=== PATIENT | male | born 1935 | race Caucasian/White ===

== ENCOUNTER → 2016-10-17 | Outpatient (CLI) | payer MEDICARE ==
[~2016-10-17] MED LIST: ALEV220T14 PO; ALL220TA PO; ALTA10CA10 PO; ASPI325T PO; EZET10 PO; LIPI80TA PO; LIPI80TA16 PO; METO5TAB PO; OMEP20CA5 PO; RAMI10CA PO; WELC625T2 PO; ZETI10TA5 PO; [UNRECOGNIZED DRUG - OTHER] PO
[2016-10-17 11:29] LABS: AUTOMATED NEUTROPHIL # 3.4 TH/MM3 (1.8-7.7); BASOPHIL # 0.1 TH/MM3 (0-0.2); BASOPHIL % 0.9 % (0.0-2.0); EOSINOPHIL # 0.2 TH/MM3 (0-0.4); EOSINOPHIL % 3.1 % (0.0-4.0); HEMATOCRIT 44.8 % (39.0-51.0); HEMO FLAGS DIFF FINAL; LYMPH % 22.9 % (9.0-44.0); LYMPHOCYTE # 1.2 TH/MM3 (1.0-4.8); MEAN CELL VOLUME 90.8 FL (80.0-100.0); MEAN CORPUSCULAR HEMOGLOBIN 29.8 PG (27.0-34.0); MEAN CORPUSCULAR HGB CONC 32.8 % (32.0-36.0); MONO % 9.6 % (0.0-8.0); NEUT % 63.5 % (16.0-70.0); PLATELET COUNT 131 TH/MM3 (150-450); RED BLOOD COUNT 4.93 MIL/MM3 (4.50-5.90); RED CELL DISTRIBUTION WIDTH 13.9 % (11.6-17.2); WHITE BLOOD COUNT 5.4 TH/MM3 (4.0-11.0)
--- NOTE | 2016-10-17 11:31 | RADRPT ---
EXAM DATE/TIME: 10/17/2016 11:16 [place] COMPARISON: No previous studies available for comparison. INDICATIONS : Evaluate for pneumonia, pneumothorax and communicable diseases. Pre-op knee surgery MEDICAL HISTORY : Hypercholesterolemia. SURGICAL HISTORY : CABG. ENCOUNTER: Initial ACUITY: 1 day PAIN SCORE: 0/10 LOCATION: chest FINDINGS: H. demonstrates evidence of prior median sternotomy CABG with normal size heart and atherosclerotic c hanges of aorta and calcification aortic knob and tortuosity of the descending aorta. 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 CONCLUSION: No acute disease. Moises Patel MD on October 17, 2016 at 11:29 Board Certified Radiologist. This report was verified electronically.
[2016-10-17 11:35] LABS: PROTHROMBIN TIME - PATIENT 10.9 SEC (9.8-11.6)
[2016-10-17 11:44] LABS: BICARBONATE 27.8 MEQ/L (21.0-32.0)
[2016-10-17 11:44] LABS: BLOOD, URINE NEG (NEG); GLUCOSE,URINE NEG (NEG); KETONE, URINE NEG (NEG); NITRITE,URINE NEG (NEG); URINE COLOR YELLOW (YELLW/STRAW)
[2016-10-17 11:53] LABS: COMMENT (UR) CULT NOT INDICATED; CULTURE IF INDICATED CULT NOT INDICATED
--- NOTE | 2016-10-18 17:16 | EKG ---
Date Performed: 10/17/2016 Time Performed: 10:13:40 PTAGE: 81 years EKG: Sinus rhythm WITH MARKED SINUS ARRHYTHMIA WITH FIRST DEGREE AV BLOCK Since previous tracing, no significant ritter e noted ABNORMAL ECG PREVIOUS TRACING : [id number] DOCTOR: Basia Rogel Interpretating Date/Time 10/18/2016 17:11:18
== END ==
LOC: CPRE 09:52
PROVIDERS: ATTEND Orthopaedic Surgery
DX: Z01.812 Encounter for preprocedural laboratory examination (principal); Z01.811 Encounter for preprocedural respiratory examination; Z01.810 Encounter for preprocedural cardiovascular examination; M17.12 Unilateral primary osteoarthritis, left knee; I44.0 Atrioventricular block, first degree
CPT/HCPCS: 36415; 71020; 80048; 81001; 85025; 85610; 93005